=== PATIENT | male | born 1950 | race Caucasian/White ===

== ENCOUNTER 2023-09-14 11:00 | Emergency (ER) | payer MEDICARE, OTHER, SELFPAY ==
[2023-09-14 11:14] VITALS: BP 203/109
[2023-09-14 11:31] LABS: % Basophils 0.9 % (0-2); % Eosinophils 5.5 % (0-6); % Immature Granulocytes 0.2 % (0-0.5); % Lymphocytes 16.3 % (20.5-51.1); % Neutrophils 66.1 % (42.2-75.2); Absolute Basophils 0.1 10^3/uL (0-0.2); Absolute Eosinophils 0.3 10^3/uL (0-0.7); Absolute Monocytes 0.6 10^3/uL (0.1-0.6); Absolute Neutrophils 3.9 10^3/uL (1.4-6.5); Hematocrit 48.8 % (39.0-52.0); Hemoglobin 16.5 g/dL (13.0-18.0); Mean Corp Hgb Conc. 33.8 g/dL (33.0-37.0); Mean Corpuscular Hgb 31.1 pg (27.0-31.0); Mean Corpuscular Volume 91.9 fL (80.0-94.0); Mean Platelet Volume 9.3 fL (7.4-10.4); Nucleated Red Blood Cells % 0 % (-); Platelet Count 229 10^3/uL (130-400); Red Blood Cell Count 5.31 10^6/uL (4.70-6.10); Red Cell Dist. Width 12.4 % (11.5-14.5); White Blood Cell Count 5.8 10^3/uL (4.8-10.8)
[2023-09-14 11:44] VITALS: BMI 23.4
[2023-09-14 11:48] LABS: ALT (SGPT) 13 U/L (0-50); AST (SGOT) 19 U/L (17-59); Albumin 4.3 g/dl (3.5-5.0); Alkaline Phosphatase 74 U/L (38-126); Blood Urea Nitrogen 10 mg/dl (9-20); Calcium 9.4 mg/dl (8.4-10.2); Carbon Dioxide 26 mmol/L (22-30); Chloride 104 mmol/L (98-107); Estimated Creatinine Clearance 67 ml/min; Glucose 127 mg/dl (70-99); Potassium 4.6 mmol/L (3.5-5.1); Sodium 139 mmol/L (135-145); Total Bilirubin 0.8 mg/dl (0.2-1.3); Total Protein 6.9 g/dl (6.3-8.2); eGFR > 60.00
[2023-09-14 11:49] VITALS: BP 179/100
[2023-09-14 12:15] VITALS: BP 178/101; BP 180/104; BP 187/96; PULSE 56; PULSE 59; PULSE 62
--- NOTE | 2023-09-14 12:19 | ED.GENMED ---
History of Present Illness
General
Chief Complaint: Heart Rate Problem
Source: patient and spouse
Exam Limitations: none
Time Seen by Provider: 09/14/23 11:49
Nursing documentation reviewed up to this point in time: agreed with
History of Present Illness
History of Present Illness:
73-year-old male with a past medical history of hypertension, atrial fibrillation, anxiety who presents to the emergency department with his for evaluation after an episode of lightheadedness. Patient reports that he was in his normal state of
health, this morning drove to the store and when he got out of his car he noticed that he was not quite feeling himself and he began to feel lightheaded. He says he drove himself home and he checked his heart rhythm on his [employer] mobile roberto�he says
that it was read as 'undetermined rhythm.' He says that he called his primary doctor and was referred to the emergency room to be assessed. He says he did not have chest pain or shortness of breath. He says he did not have any palpitations. He
says he did not have any other symptoms and has not had any recent illness. He says that his symptoms have resolved since arrival here in the emergency room and he now feels 'normal.' He does have a known history of paroxysmal A-fib and has been
on Eliquis and is compliant. He follows with Dr. Trotter for cardiology.
Past History
Past History
ED Past Medical History: Arrthythmia (A-fib 30 years ago) and HTN
ED Past Surgical History: Other
Social History
Tobacco: Former smoker
Alcohol: Occasional
Drug: Marijuana
Personal:
Living: with family
Employment: Other
Family History
Family History: Negative Diabetes, Hypertension, Early CAD, Asthma or Cancer
Review of Systems
Review of Systems
All Other Systems: ROS reviewed and negative except as documented in HPI and ROS
Constitutional: Denies fever
Respiratory: Denies cough or trouble breathing
Cardiac: Denies chest pain, diaphoresis or palpitations
ABD/GI: Denies abdominal pain, nausea or vomiting
: Denies flank pain
Musculoskeletal: Denies neck pain or back pain
Neurological: Reports dizzy; Denies headache
Phy Exam
Physical Exam
Physical Exam:
General: Awake, alert, oriented x3; no acute distress
Head: Normocephalic, atraumatic
Eyes: Conjunctiva normal, pupils equal round and reactive to light bilaterally
Throat: Airway intact, handling secretions
Neck: Trachea midline, supple without meningismus
Lungs: Clear to auscultation bilaterally, no wheezing, rales, rhonchi
Heart: Regular rate and rhythm, no murmurs, gallops, or rubs
Abd: Soft, non distended, nontender
Neuro: Cranial nerves grossly intact, speech fluid
Skin: no rash
Extremities: No edema in extremities, equal pulses in all extremities
Scores
Heart Failure Risk
Heart Failure Risk Score: Not Applicable
Heart Score for Chest Pain Patients
STEMI patient?: Not applicable
Withdrawal Assessment of Alcohol
Withdrawal Assessment Completed?: Not applicable
Course
Orders/Labs/Results
Orders:
Orders
09/14/23
ECG [Electrocardiogram (*1)] Urgent
Reason for Study: Vertigo / Dizzy
09/14/23 11:22
CMP [Comprehensive Metabolic Panel] Urgent
Complete Blood Count/With Diff Urgent
09/14/23 12:15
Orthostatic VS- Treatment ONCE
Abnormal Lab Results
09/14/23
11:22
MCH 31.1 H pg
(27.0-31.0)
Absolute Lymphs (auto) 1.0 L 10^3/uL
(1.2-3.4)
Lymphocytes % 16.3 L %
(20.5-51.1)
Monocytes % 11.0 H %
(1.7-9.3)
Glucose 127 H mg/dl
(70-99)
09/14/23 11:22
09/14/23 11:22
Vital Signs
Initial and Last Documented VS:
Initial Vital Signs
Temp Pulse Resp BP Pulse Ox
36.7 C 58 18 203/109 99
09/14/23 11:14 09/14/23 11:14 09/14/23 11:14 09/14/23 11:14 09/14/23 11:14
Last Documented Vital Signs
Temp Pulse Resp BP Pulse Ox
36.7 C 58 18 179/100 99
09/14/23 11:14 09/14/23 11:14 09/14/23 11:14 09/14/23 11:49 09/14/23 11:14
MDM/Problems Addressed
Differential Diagnosis Includes:
Dehydration, anemia, electrolyte derangement, paroxysmal A-fib
MDM/Problems Addressed:
73-year-old male presents to the emergency room after an episode of lightheadedness that occurred earlier today and has resolved. He says that his [employer] mobile roberto read as 'undetermined rhythm' at the time. Fortunately I was able to review the
rhythm strip from his phone�it appears to be a sinus rhythm with PVCs. He is asymptomatic on arrival here. He was severely hypertensive in triage improved on my assessment. Rest of vitals normal. Physical exam as above. EKG shows sinus rhythm.
Will plan to check orthostatic vital signs. Will place an IV check labs including a CBC and a CMP. Will monitor on telemetry and reassess after the above.
Labs reviewed: CBC and CMP are unremarkable. Patient has remained asymptomatic. Blood pressure improving. My suspicion is that this may be some mild dehydration as patient reports that he has been working outside doing yard work and
indicates that he does not drink much fluid. Episode of paroxysmal A-fib possible as well although somewhat less likely with reassuring rhythm strip from [employer] mobile roberto during the episode. Patient also reports he has had similar symptoms with
panic attack in the past and that he has chronic issues with anxiety. At this point there is no clear indication for hospital admission. We did speak about his elevated blood pressure�low suspicion that this is a cause of his symptoms especially
given his symptoms had resolved despite elevated blood pressure on arrival. It is improving here advised to follow-up with his primary doctor after this episode as well as to have his blood pressure rechecked. He feels very comfortable with this
plan and in fact prefers to be discharged. Encouraged good p.o. hydration when working out in the heat. Spoke about return precautions and all questions answered.
Chronic conditions affecting care:
Atrial fibrillation
Acute Exacerbation and/or Progression of Chronic Illness:
Acutely hypertensive with no signs or symptoms of hypertensive emergency�no indication for emergent antihypertensive therapy
Acute Exacerbation and/or Progression of Chronic Illness: HTN
*Pulse Oximetry
Patient hypoxic: no
*EKG
Interpreted by ED Provider?: Yes
Heart Rate: 65
Rate: normal
Rhythm: sinus and PVC's
[place]: normal axis
Interval: normal interval
QRS Pattern: normal QRS
Ischemia: no ischemia
*Critical Care Note
Total Time (30-74mins, 75-104mins- exclusive of procedures): Not Applicable
Data Reviewed
Review of Other/Old Records Reveals: Other (Reviewed rhythm strip from [employer] mobile rober[employer])
Source: patient and spouse
ED Attending Note
-
Portions of this chart may have been created with voice recognition software.� Occasional wrong word or��sound alike� substitutions may have occurred due to the inherent limitations of voice recognition software.
Discharge Plan
Departure
Prescriptions:
No Action
diltiazem HCl 30 mg Tablet
30 mg PO DAILYPRN PRN (Reason: tachycardia, HR >120) 30 Days Qty: 30 0RF
losartan 100 mg Tablet
100 mg PO DAILY 30 Days Qty: 30 0RF
Eliquis 5 mg Tablet
5 mg PO BID 30 Days Qty: 60 0RF
atenolol 50 mg Tablet
50 mg PO Q12 30 Days Qty: 60 0RF
Referrals:
Zoran Howe CRNP [Family Provider] -
Interventions
Interventions:
*Risk Screen - Suicide Last Done: 09/14/23 11:44
*General Assessment Last Done: 09/14/23 11:44
*Neglect/Abuse Screening Last Done: 09/14/23 11:44
ED- Fall Risk Assessment Last Done: 09/14/23 11:44
*ED COVID-19 Vaccine History Last Done: 09/14/23 11:44
ED- Cardiac Assessment Last Done: 09/14/23 11:44
ED- Pulmonary Assessment Last Done: 09/14/23 11:44
Discharge Date and Time
Print Language: ITALIAN
== END 2023-09-14 13:10 | disposition home or self-care (01) ==
LOC: EMR 11:00
PROVIDERS: Emergency Medicine; EMERGENCY PHYSICIAN Emergency Medicine; FAMILY PHYSICIAN Registered Nurse
DX: R42 Dizziness and giddiness (principal); I10 Essential (primary) hypertension; F41.9 Anxiety disorder, unspecified; I48.0 Paroxysmal atrial fibrillation; Z79.01 Long term (current) use of anticoagulants; Z87.891 Personal history of nicotine dependence; Z88.0 Allergy status to penicillin
CPT/HCPCS: 99283; 80053; 85025; 93005

== ENCOUNTER 2024-09-10 06:27 | Day surgery (SDC) | payer MEDICARE, OTHER, SELFPAY | END 2024-09-10 12:42 | disposition home or self-care (01) | LOC: GI 06:27 | PROVIDERS: ATTENDING PHYSICIAN Student in an Organized Health Care Education/Training Program; FAMILY PHYSICIAN Registered Nurse | DX: Z12.11 Encounter for screening for malignant neoplasm of colon (principal); D12.8 Benign neoplasm of rectum; K57.30 Diverticulosis of large intestine without perforation or abscess without bleeding; K62.89 Other specified diseases of anus and rectum; K64.0 First degree hemorrhoids; R19.5 Other fecal abnormalities | CPT/HCPCS: 45385; 45380; 88305 ==